=== PATIENT | female | born 1985 | race Asian ===

== ENCOUNTER 2019-03-11 00:05 | Emergency (ER) | payer OTHER ==
[~2019-03-11] VITALS: Ht 175.3 cm; Wt 77.3 kg
[2019-03-11] MEDS ORDERED: CLIN1GEL48 TP (00:14)
[2019-03-11] MEDS ORDERED: TRET0.0212 TOP (00:14)
[2019-03-11] MEDS ORDERED: IBUPROFEN 600 MG TAB PO ONE (00:45)
[2019-03-11 01:28] VITALS: BP 128/76
--- NOTE | 2019-03-11 07:08 | REP ---
Clinical: Right elbow pain . Technique: AP, lateral, bilateral oblique views of the right elbow. Findings: No acute fracture or dislocation is appreciated. Joint spaces and surrounding soft tissues appear normal. Lateral view demonstrates normal positioning to the anterior and posterior fat pads without evidence for effusion/hemarthrosis. No subcutaneous emphysema or foreign body identified. Impression: Normal right elbow radiographs. Electronically Signed by Suresh Dallas MD 03/11/2019 07:00 A
== END 2019-03-11 01:33 | disposition home or self-care (01) ==
LOC: M ED 00:05
DX: S50.01XA Contusion of right elbow, initial encounter (principal); S54.01XA Injury of ulnar nerve at forearm level, right arm, initial encounter; W07.XXXA Fall from chair, initial encounter; Y92.098 Other place in other non-institutional residence as the place of occurrence of the external cause; M41.9 Scoliosis, unspecified; Z79.899 Other long term (current) drug therapy